=== PATIENT | female | born 1985 | race Caucasian/White ===

== ENCOUNTER 2021-06-14 21:12 | Emergency (ER) | payer OTHER ==
[2021-06-14] MEDS ORDERED: MOBIC7.5 M1 PO (22:59)
== END 2021-06-14 23:00 | disposition home or self-care (01) ==
LOC: FER 21:12
DX: S60.221A Contusion of right hand, initial encounter (principal); Z88.0 Allergy status to penicillin; Z88.2 Allergy status to sulfonamides; Z88.1 Allergy status to other antibiotic agents; W23.0XXA Caught, crushed, jammed, or pinched between moving objects, initial encounter; Y92.009 Unspecified place in unspecified non-institutional (private) residence as the place of occurrence of the external cause
CPT/HCPCS: 73130